=== PATIENT | male | born 1975 | race Asian ===

== ENCOUNTER 2020-09-28 11:54 | Emergency (ER) | payer OTHER ==
[~2020-09-28] VITALS: Ht 177.8 cm; Wt 99.8 kg
[~2020-09-28 11:54] MED LIST: COZAAR 50 MG TA50 M2 PO; HYDROCODONE-AP1 EAC6 PO
[2020-09-28 12:10] LABS: ABSOLUTE BASOPHILS 0.1 thou/uL (0.0-0.2); ABSOLUTE EOSINOPHILS 0.2 thou/uL (0.0-0.7); ABSOLUTE LYMPHOCYTES 2.7 thou/uL (0.8-5.3); ABSOLUTE MONOCYTES 0.7 thou/uL (0.0-1.2); ABSOLUTE NEUTROPHILS 2.9 thou/uL (1.6-8.1); BASOPHILS 1.1 %; EOSINOPHILS 3.3 %; HEMATOCRIT 38.4 % (42.0-52.0); HEMOGLOBIN 12.8 gm/dL (14.0-18.0); MCHC 33.2 g/dL (28.0-37.0); MCV 81.2 fL (80.0-100.0); MONOCYTES 10.3 %; MPV 7.2 fl. (7.2-11.1); NUCLEATED RBCS 0 /100WBC; PLATELET COUNT* 341 thou/uL (150-400); POLYS 44.3 %; RBC 4.73 mil/uL (4.50-6.00); RDW-CV 14.3 % (10.5-14.5); WBC 6.6 thou/uL (4.0-11.0)
[2020-09-28] MEDS ORDERED: METFORMIN HCL500 M3 PO (12:10)
[2020-09-28 12:20] LABS: CALCIUM 8.6 mg/dL (8.5-10.1); POTASSIUM 3.9 mmol/L (3.5-5.1)
[2020-09-28 12:34] LABS: ALBUMIN 3.5 g/dL (3.4-5.0); CK-MB MASS 2.4 ng/mL (<0.5-3.6); MAGNESIUM 1.8 mg/dL (1.8-2.4); TOTAL BILIRUBIN 0.3 mg/dL (<0.1-1.0); TOTAL PROTEIN 7.7 g/dL (6.4-8.2)
[2020-09-28 13:44] VITALS: BP 136/87
--- NOTE | 2020-09-28 15:51 | EKG ---
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 : 1975 Requested By: Randell Lebron Order Number: [id number] MD: Armando Courtney Measurements Intervals [place] Rate: 84 P: 46 HI: 144 QRS: 27 QRSD: 92 T: 62 QT: 364 QTc: 431 Interpretive Statements Sinus rhythm RSR' in V1 or V2, probably normal variant Borderline T wave abnormalities Compared to ECG 08/09/2015 12:12:44 RSR' in V1 or V2 persists Minor T-wave abnormality now present Electronically Signed On 09-28-2020 15:51:31 CDT by Armando Courtney [email or web address] <ELECTRONICALLY SIGNED> By: Armando Courtney MD, [facility] 09/28/20 1551 1201 1201 Armando Courtney MD, [facility] /EPI
== END 2020-09-28 13:45 | disposition home or self-care (01) ==
LOC: M.ERS 11:54
PROVIDERS: Family Medicine
DX: R07.89 Other chest pain (principal); I10 Essential (primary) hypertension